=== PATIENT | male | born 1980 | race Hispanic/Latino ===

== ENCOUNTER 2021-06-01 13:28 | Emergency (ER) | payer MEDICAID ==
[2021-06-01 15:50] VITALS: BP 138/75
== END 2021-06-01 15:50 | disposition home or self-care (01) ==
LOC: ED 13:28
DX: U07.1 COVID-19 (principal)

== ENCOUNTER 2021-08-18 11:00 | Emergency (ER) | payer MEDICAID ==
[~2021-08-18] VITALS: Ht 175.3 cm; Wt 78.0 kg
[2021-08-18] MEDS ORDERED: CORTISPORIN OTI10 ML AD (12:51)
[2021-08-18 13:00] VITALS: BP 129/80
== END 2021-08-18 13:00 | disposition home or self-care (01) ==
LOC: ED 11:00
DX: H61.21 Impacted cerumen, right ear (principal)

== ENCOUNTER 2021-10-24 17:48 | Emergency (ER) | payer MEDICAID ==
[~2021-10-24] VITALS: Ht 175.3 cm; Wt 80.0 kg
[~2021-10-24 17:48] MED LIST: CORTISPORIN OTI10 ML AD
[2021-10-24] MEDS ORDERED: TESSALON PERLE100 MG PO (19:41)
[2021-10-24] MEDS ORDERED: AFRIN NASAL SP0.05 % NAB (19:41)
[2021-10-24] MEDS ORDERED: TORADOL PO (19:41)
[2021-10-24 19:47] VITALS: BP 139/87
== END 2021-10-24 19:56 | disposition home or self-care (01) ==
LOC: ED 17:48
DX: U07.1 COVID-19 (principal)

== ENCOUNTER 2023-01-15 11:06 | Emergency (ER) | payer OTHER, MEDICAID ==
[~2023-01-15] VITALS: Ht 175.3 cm; Wt 87.0 kg
[~2023-01-15 11:06] MED LIST changes: +AFRIN NASAL SP0.05 % NAB; +TESSALON PERLE100 MG PO; +TORADOL PO
[2023-01-15 11:41] VITALS: BP 155/77
[2023-01-15 11:45] VITALS: BP 144/66
[2023-01-15 12:01] VITALS: BP 151/70
[2023-01-15] MEDS ORDERED: KEFLEX500 MG PO (12:10)
[2023-01-15 12:31] VITALS: BP 138/66
[2023-01-15 12:51] VITALS: BP 138/66
== END 2023-01-15 12:51 | disposition home or self-care (01) | DRG 605 ==
LOC: ED 11:06
PROC: 0HQGXZZ Repair Left Hand Skin, External Approach (ICD-10-PCS; principal; 2023-01-15)
DX: S61.412A Laceration without foreign body of left hand, initial encounter (principal); W27.8XXA Contact with other nonpowered hand tool, initial encounter